=== PATIENT | female | born 1955 | race American Indian/Alaskan Native ===

== ENCOUNTER 2017-09-29 11:56 | Emergency (ER) | payer OTHER ==
[2017-09-29 16:59] VITALS: BP 155/96
--- NOTE | 2017-09-29 17:51 | Emergency Department Report ---
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 denies: productive cough, fever, chest pain, hemoptysis, leg edema, syncope Treatments Prior to Arrival: inhaled steroid - Related Data Current Asthma Therapy: inhaled bronchodilator, inhaled steroid Previous Rx's Medication Instructions Recorded Last Taken Type ALBUTEROL Inhaler [ProAir HFA 2 puff IH QID PRN #1 inhalation 09/29/17 Unknown Rx Inhaler] ALBUTEROL NEB's [Proventil 0.083% 2.5 mg IH TID PRN #1 box 09/29/17 Unknown Rx NEBS] predniSONE [Deltasone] 20 mg PO QDAY #5 tab 09/29/17 Unknown Rx Allergies Allergy/AdvReac Type Severity Reaction Status Date / Time No Known Allergies Allergy Unverified 09/29/17 16:59 ED Review of Systems ROS: Stated complaint: KATHERYN,ASTHMA ATTACK Other details as noted in HPI Constitutional: denies: chills, diaphoresis, fever, malaise, weakness ENT: denies: throat pain, congestion Respiratory: cough, shortness of breath, wheezing. denies: orthopnea, SOB with exertion, SOB at rest, stridor Cardiovascular: denies: chest pain, palpitations, dyspnea on exertion, orthopnea , edema, syncope Gastrointestinal: denies: nausea, vomiting Skin: denies: rash Neurological: denies: headache Psychiatric: denies: as per HPI ED Past Medical Hx - Past Medical History Hx Hypertension: Yes Hx Arthritis: Yes Hx Asthma: Yes - Social History Smoking Status: Unknown if ever smoked Substance Use Type: None - Medications Home Medications: Home Medications Medication Instructions Recorded Confirmed Last Taken Type ALBUTEROL Inhaler [ProAir HFA 2 puff IH QID PRN #1 inhalation 09/29/17 Unknown Rx Inhaler] ALBUTEROL NEB's [Proventil 0.083% 2.5 mg IH TID PRN #1 box 09/29/17 Unknown Rx NEBS] predniSONE [Deltasone] 20 mg PO QDAY #5 tab 09/29/17 Unknown Rx ED Physical Exam - General Limitations: No Limitations General appearance: alert, in no apparent distress - Head Head exam: Present: atraumatic, normocephalic, normal inspection - Eye Eye exam: Present: normal appearance, PERRL, EOMI Pupils: Present: normal accommodation - ENT ENT exam: Present: normal exam, normal orophraynx, mucous membranes moist, TM's normal bilaterally, normal external ear exam - Neck Neck exam: Present: normal inspection, full ROM. Absent: tenderness, meningismus, lymphadenopathy - Respiratory Respiratory exam: Present: normal lung sounds bilaterally. Absent: respiratory distress, wheezes, rales, rhonchi, stridor, accessory muscle use, decreased breath sounds, prolonged expiratory - Cardiovascular Cardiovascular Exam: Present: regular rate, normal rhythm, normal heart sounds - Extremities Exam Extremities exam: Present: normal capillary refill. Absent: pedal edema - Back Exam Back exam: Present: full ROM - Neurological Exam Neurological exam: Present: alert, oriented X3, normal gait - Psychiatric Psychiatric exam: Present: normal affect, normal mood - Skin Skin exam: Present: warm, dry, intact, normal color. Absent: rash ED Course Vital Signs 09/29/17 16:55 Temperature 97.8 F Pulse Rate 98 H Respiratory 20 Rate Blood Pressure 155/96 O2 Sat by Pulse 98 Oximetry ED Medical Decision Making - Medical Decision Making Patient states she was given a nebulizer treatment in the ambulance [facility] [employer] in ED and she felt much better afterwards; at time of evaluation, 1745, patient no longer c/o SOB, wheezing and cough; lung exam showed CTAB with no wheezing or respiratory distress; ambulatory oxygen saturation at 1755 was 98% on RA; patient said she needs refills of her rescue inhaler and nebulizer vials, will refill and give small dose of steroids; told her to follow up with PCP, she verbalized understanding Critical Care Time: No Critical care attestation.: If time is entered above; I have spent that time in minutes in the direct care of this critically ill patient, excluding procedure time. ED Disposition Clinical Impression: Asthma exacerbation, mild Disposition: [id number] TO HOME OR SELFCARE Is pt being admited?: No Does the pt Need Aspirin: No Condition: Stable Instructions: Asthma (ED) Prescriptions: ALBUTEROL Inhaler [ProAir HFA Inhaler] 2 puff IH QID PRN #1 inhalation PRN Reason: Shortness Of Breath ALBUTEROL NEB's [Proventil 0.083% NEBS] 2.5 mg IH TID PRN #1 box PRN Reason: Wheezing predniSONE [Deltasone] 20 mg PO QDAY #5 tab Referrals: PRIMARY CARE, [Primary Care Provider] - 3-5 Days Forms: Work/School Release Form(ED) Time of Disposition: 17:51 Print Language: ESTONIAN
== END 2017-09-29 18:00 | disposition home or self-care (01) ==
LOC: ED 11:56
DX: J45.901 Unspecified asthma with (acute) exacerbation (principal); I10 Essential (primary) hypertension; M19.90 Unspecified osteoarthritis, unspecified site
CPT/HCPCS: 99282